=== PATIENT | female | born 1975 | race Asian ===

== ENCOUNTER 2016-10-23 08:57 | Inpatient (IN) | payer SELFPAY ==
[~2016-10-23] VITALS: Ht 164 cm; Wt 69.9 kg
[2016-10-23] MEDS ORDERED: LACTATED RINGERS 1,000 ML IV SCH (09:16)
[2016-10-23] MEDS ORDERED: PREN-380 PO (09:20)
[2016-10-23] MEDS ORDERED: CITRIC ACID/SODIUM CITRATE 30 ML UDC PO ONE (09:20)
[2016-10-23 09:46] LABS: BASOPHILS # (AUTO) 0.1 K/uL (0.00-0.22); BASOPHILS % (AUTO) 0.6 % (0.0-2.0); EOSINOPHILS # (AUTO) 0.2 K/uL (0-0.4); EOSINOPHILS % (AUTO) 1.9 % (0.0-4.0); HEMATOCRIT 37.7 % (36-48); HEMOGLOBIN 12.6 g/dL (12.0-16.0); LYMPHOCYTES # (AUTO) 1.5 K/uL (2.5-16.5); LYMPHOCYTES % (AUTO) 16.9 % (20.5-51.1); MEAN CORPUSCULAR HEMOGLOBIN 30 pg (27-31); MEAN CORPUSCULAR HGB CONC 34 g/dL (33-37); MEAN CORPUSCULAR VOLUME 91 fL (80-94); MONOCYTES # (AUTO) 0.8 K/uL (0.8-1.0); MONOCYTES % (AUTO) 9.4 % (1.7-9.3); NEUTROPHILS # (AUTO) 6.4 K/uL (1.8-7.7); NEUTROPHILS % (AUTO) 71.2 % (42.2-75.2); PLATELET COUNT (AUTO) 251 K/uL (140-450); RED BLOOD CELL COUNT(AUTO) 4.16 MIL/uL (4.20-5.40); RED CELL DISTRIBUTION WIDTH 11.9 % (11.6-13.7)
[2016-10-23 10:09] LABS: ALBUMIN 2.8 g/dL (3.4-5.0); CALCIUM 8.1 mg/dL (8.5-10.1); CARBON DIOXIDE 23.1 mmol/L (21-32); CREATININE 0.6 mg/dL (0.6-1.3); POTASSIUM 4.1 mmol/L (3.5-5.1); TOTAL BILIRUBIN 0.4 mg/dL (0.0-1.0); TOTAL PROTEIN, SERUM 7.1 g/dL (6.4-8.2)
[2016-10-23 10:22] LABS: HIV RAPID SCREEN NON-REACTIVE (NON REACTIV)
[2016-10-23 10:41] LABS: APPEARANCE,URINE CLEAR (CLEAR); BILIRUBIN,URINE NEGATIVE (NEGATIVE); BLOOD, URINE TRACE-I (NEGATIVE); COLOR,URINE YELLOW (YELLOW); LEUKOCYTE ESTERASE ,URINE NEGATIVE (NEGATIVE); NITRITE, URINE NEGATIVE (NEGATIVE); PH,URINE 6.5 (5.0-9.0); PROTEIN,URINE NEGATIVE (NEGATIVE); UGLUCOSE NEGATIVE (NEGATIVE); UROBILINOGEN,URINE 0.2 EU/dL (0.2 - 1)
[2016-10-23 10:55] VITALS: BP 110/71
[2016-10-23 10:59] LABS: BACTERIA,URINE OCCASSIONAL /HPF (None Seen); RBC,URINE 0-5 (RARE) /HPF (0-5); SQUAMOUS EPITHELIAL CELL,UR 0-3 (FEW) /LPF (0-3 (FEW)); WBC,URINE 0-5 (RARE) /HPF (0-5)
[2016-10-23 11:49] LABS: RAPID PLASMA REAGIN NON-REACTIVE (Non Reactiv)
[2016-10-23] MEDS ORDERED: BUPIVACAINE-MPF 0.75% 10 ML VIAL INJ ONE (13:21)
[2016-10-23] MEDS ORDERED: MIDAZOLAM 2 MG/2 ML VIAL ONE (13:21)
[2016-10-23] MEDS ORDERED: KETOROLAC 30 MG/ML VIAL IVP ONE (13:21)
[2016-10-23] MEDS ORDERED: fentaNYL 0.05 MG/ML VIAL ONE (13:21)
[2016-10-23] MEDS ORDERED: KETAMINE 500 MG/5 ML VIAL ONE (13:21)
[2016-10-23] MEDS ORDERED: MORPHINE PRES FREE 10 MG/10 ML AMP IV ONE (13:21)
[2016-10-23] MEDS ORDERED: ONDANSETRON 4 MG/2 ML VIAL IVP ONE (13:21)
[2016-10-23] MEDS ORDERED: diphenhydrAMINE 50 MG/ML VIAL IVP PRN (14:10)
[2016-10-23] MEDS ORDERED: ONDANSETRON 4 MG/2 ML VIAL IVP PRN (14:10)
[2016-10-23] MEDS ORDERED: KETOROLAC 30 MG/ML VIAL IVP PRN ×2 (14:10→22:05)
[2016-10-23] MEDS ORDERED: HEPATITIS B VACCINE PEDIATRIC 10 MCG/0.5 ML VIAL IMVAC ONE (15:07)
[2016-10-23] MEDS ORDERED: PHYTONADIONE 1 MG/0.5 ML SYR ONE (15:07)
[2016-10-23] MEDS ORDERED: OXYTOCIN 20 UNITS/LR PREMIX 1,000 ML IV ONE (16:14)
[2016-10-23] MEDS ORDERED: INFLUENZA VIRUS VACCINE QUAD 0.5 ML SYR IMVAC SCH (22:00)
[2016-10-23] MEDS ORDERED: HYDROmorphone 1 MG/ML AMP IVP PRN (22:05)
[2016-10-23] MEDS ORDERED: MEASLES, MUMPS, AND RUBELLA 1 VIAL SQVAC PRN (22:05)
[2016-10-24] MEDS: OXYTOCIN 20 UNITS/LR PREMIX 1,000 ML IV SCH ×2 (00:51→07:44)
--- NOTE | 2016-10-24 07:44 | NUR ---
PATIENT HAS BEEN SCREENED AND CATEGORIZED LOW NUTRITION RISK. PATIENT WILL BE SEEN WITHIN 7 DAYS OF ADMISSION. 10/30/[address]
[2016-10-24 08:33] LABS: MEAN CORPUSCULAR HEMOGLOBIN 31 pg (27-31); MEAN CORPUSCULAR HGB CONC 34 g/dL (33-37); MEAN CORPUSCULAR VOLUME 91 fL (80-94); PLATELET COUNT (AUTO) 202 K/uL (140-450); RED BLOOD CELL COUNT(AUTO) 3.19 MIL/uL (4.20-5.40); RED CELL DISTRIBUTION WIDTH 12.2 % (11.6-13.7); WHITE BLOOD COUNT (AUTO) 11.7 K/uL (4.8-10.8)
[2016-10-24 08:47] LABS: HEMOGLOBIN 9.7 g/dL (12.0-16.0)
[2016-10-24 08:48] LABS: PLATELET ESTIMATE ADEQUATE
[2016-10-24 08:53] LABS: BAND % (MANUAL) 7 % (0-8); EOSINOPHILS % (MANUAL) 2 % (0-4); LYMPHOCYTES % (MANUAL) 9 % (20-46); MONOCYTES % (MANUAL) 7 % (5-12)
[2016-10-24 08:54] LABS: NEUTROPHILS % (MANUAL) 75 (43-65)
[2016-10-24] MEDS: IBUPROFEN 600 MG TAB PO PRN (19:47)
[2016-10-25] MEDS: IBUPROFEN 600 MG TAB PO PRN ×2 (06:17→12:26)
[2016-10-25] MEDS ORDERED: oxyCODONE/APAP 5/325 MG 1 TAB TAB PO PRN (08:00)
[2016-10-25] MEDS ORDERED: DOCUSATE SODIUM 100 MG GELCAP PO PRN (08:00)
[2016-10-25] MEDS ORDERED: SIMETHICONE 80 MG TAB.CHEW PO PRN (08:00)
[2016-10-25] MEDS ORDERED: BISACODYL 5 MG TABEC PO PRN (08:00)
[2016-10-25] MEDS ORDERED: SODIUM PHOSPHATE 118 ML ENEM RC PRN (08:00)
[2016-10-26] MEDS: IBUPROFEN 600 MG TAB PO PRN ×2 (04:55→09:52)
[2016-10-26] MEDS ORDERED: IBUP800T99 PO ×2 (10:52→11:04)
== END 2016-10-26 17:40 | disposition home or self-care (01) | DRG 766 ==
LOC: MLD 08:57 → MFCC 13:10
PROVIDERS: ADMIT Obstetrics & Gynecology; ATTEND Obstetrics & Gynecology
PROC: 10D00Z1 Extraction of Products of Conception, Low, Open Approach (ICD-10-PCS; principal; 2016-10-23 12:00)
PROC: 3E0234Z Introduction of Serum, Toxoid and Vaccine into Muscle, Percutaneous Approach (ICD-10-PCS; 2016-10-24)
DX: O34.211 Maternal care for low transverse scar from previous cesarean delivery (principal); O75.89 Other specified complications of labor and delivery; O69.81X0 Labor and delivery complicated by cord around neck, without compression, not applicable or unspecified; Z3A.40 40 weeks gestation of pregnancy; Z37.0 Single live birth; O09.523 Supervision of elderly multigravida, third trimester; Z23 Encounter for immunization
CPT/HCPCS: 36415; 51702; 80053; 81001; 85025; 86592; 86886; 86900; 86901; 87081; 87086; 90658; 90715; 90744; J0690; J1885; J2250; J2270; J2405; J2590; J3010; J3430; J3490; J7060; J7120